=== PATIENT | male | born 1945 | race Caucasian/White ===

== ENCOUNTER → 2016-12-11 | Outpatient (REF) ==
[~2016-12-11] MED LIST: ALEVE 220MG220 MG PO; ALLEGRA 180MG180 MG PO; ALTACE 10MG TAB10 MG PO; ALTACE 5MG5 MG PO; ALTACE2.5 MG PO; AMBIEN 10MG10 MG PO; AMOXICILLIN 50500 MG PO; ARAVA; ARAVA IJ; ASPIR-LOW81 MG PO; ASPIRIN E.C. 8181 MG PO; ATIVAN 0.50.5 MG/TAB PO; CARDURA 2MG2 MG PO; CELEBREX; CELEBREX 200MG200 MG PO; CELEXA 20MG20 MG/TAB PO; CIPRO 500MG TA500 MG PO; CLOPIDOGREL; CRESTOR20 MG PO; CRESTOR40 MG PO; FLEXERIL10 MG PO; FLOMAX 0.40.4 MG/CAP PO; FLOMAX PO; FOLIC ACID; FOLIC ACID 11 MG/TA1 PO; FOLIC ACID1 MG PO; GLUCOPHAGE500 MG/TAB PO; HCTZ 25MG TAB25 MG PO; HCTZ 25MG25 MG PO; LORTAB 10/500 51 TAB PO; METHOTREXA2.5 MG/TAB PO; MONODOX100 PO; NEURONTIN; NITROSTAT0.4 MG SL; NITROSTAT0.4 MG/TAB SL; OMEGA 31000 MG PO; PACERONE200 MG PO; PREDNISONE10 MG PO; PRIL40 PO; PRILOSEC 20MG20 MG PO; PRILOSEC10 MG PO; PROAIR HFA0.09 MG/AC IH; RT ADVAIR HFA 1112 G IH; SINGULAIR 110 MG/TAB PO; TRAMADOL50 MG PO; TRICOR145 MG PO; ULTRAM 50MG TAB50 MG PO; VIAGRA50 M1; VITAMIN E 400 U4001 PO; VITAMIN E1000 IU PO; ZOCOR80 MG PO
== END ==
LOC: ZLAB.WCH 10:10
DX: Z01.89 Encounter for other specified special examinations (principal)

== ENCOUNTER → 2017-01-11 | Outpatient (REF) | LOC: ZLAB.WCH 11:02 | DX: Z01.89 Encounter for other specified special examinations (principal) ==

== ENCOUNTER → 2017-06-17 | Outpatient (REF) | LOC: ZLAB.WCH 18:28 | DX: Z01.89 Encounter for other specified special examinations (principal) ==

== ENCOUNTER → 2018-01-02 | Outpatient (REF) ==
[2018-01-02 19:44] LABS: THYROID STIMULATING HORMONE 4.91 uIU/mL (0.465-4.680)
[2018-01-02 20:49] LABS: PSA-TOTAL 1.45 ng/mL (0-4)
== END ==
LOC: ZLAB.WCH 18:38
PROVIDERS: Internal Medicine
DX: Z01.89 Encounter for other specified special examinations (principal)
CPT/HCPCS: G0103

== ENCOUNTER → 2018-04-09 | Outpatient (REF) | LOC: ZLAB.WCH 14:27 | DX: Z01.89 Encounter for other specified special examinations (principal) ==

== ENCOUNTER → 2018-09-08 | Outpatient (REF) | LOC: ZLAB.WCH 15:57 | DX: Z01.89 Encounter for other specified special examinations (principal) ==

== ENCOUNTER → 2018-10-19 | Outpatient (REF) | LOC: ZLAB.WCH 16:35 | DX: Z01.89 Encounter for other specified special examinations (principal) ==